=== PATIENT | female | born 1980 | race Caucasian/White ===

== ENCOUNTER 2018-06-11 20:23 | Emergency (ER) | payer OTHER ==
[~2018-06-11] VITALS: Ht 152.4 cm; Wt 70.3 kg
[2018-06-11] MEDS ORDERED: HYDROMORPHONE 1MG/1ML INJ IV STA (20:37)
[2018-06-11] MEDS ORDERED: ONDANSETRON HCL INJ 2 MG/ML VIAL IV STA (20:37)
[2018-06-11] MEDS ORDERED: SODIUM CHLORIDE 0.9% 1000ML 1,000 ML IV ONE (20:45)
[2018-06-11] MEDS ORDERED: NITROFURANTOIN100 MG PO (20:46)
[2018-06-11] MEDS ORDERED: LABETALOL HCL100 MG PO (20:46)
[2018-06-11] MEDS ORDERED: METFORMIN HCL500 MG PO (20:46)
[2018-06-11] MEDS ORDERED: LOSARTAN POTASS50 MG PO (20:46)
[2018-06-11] MEDS ORDERED: FERRALET 90 DU1 EACH PO (20:46)
[2018-06-11] MEDS ORDERED: AMLODIPINE BESYL5 MG PO (20:46)
[2018-06-11] MEDS ORDERED: SERTRALINE HCL50 MG PO (20:46)
[2018-06-11] MEDS ORDERED: PROMETHAZINE12.5 M1 PO (20:46)
[2018-06-11] MEDS ORDERED: FLOMAX0.4 MG PO (20:46)
[2018-06-11] MEDS ORDERED: FENOFIBRATE145 MG PO (20:46)
[2018-06-11] MEDS ORDERED: LIVALO2 MG PO (20:46)
[2018-06-11] MEDS ORDERED: LORATADINE10 MG PO (20:46)
[2018-06-11] MEDS ORDERED: OXYBUTYNIN CHLOR5 MG PO (20:46)
[2018-06-11 20:47] LABS: BASOPHILS # (AUTO) 0.1 (0.0-0.1); BASOPHILS % 0.5 % (0.0-1.0); EOSINOPHILS # (AUTO) 0.7 (0.0-0.4); EOSINOPHILS % 4.5 % (0.0-6.0); HEMOGLOBIN 12.5 g/dL (12.0-16.0); LYMPHOCYTES % 18.9 % (18.0-39.1); MEAN CORPUSCULAR HEMOGLOBIN 25.5 pg (28-32); MEAN CORPUSCULAR HGB CONC 32.1 g/dL (31-35); MEAN CORPUSCULAR VOLUME 79.6 fL (81-99); MONOCYTES # (AUTO) 0.7 (0.2-0.8); MONOCYTES % 4.2 % (4.4-11.3); NEUTROPHILS # (AUTO) 11.4 (2.1-6.9); NEUTROPHILS % 70.8 % (38.7-80.0); PLATELET COUNT 528 x10e3/uL (140-360); RED CELL DISTRIBUTION WIDTH 13.9 % (11.7-14.4)
[2018-06-11 20:50] LABS: BILIRUBIN,URINE 2+ (NEGATIVE); CLARITY,URINE CLOUDY (CLEAR); COLOR,URINE RED (YELLOW); KETONES,URINE TRACE (NEGATIVE); LEUKOCYTE ESTERASE ,URINE 1+ (NEGATIVE); NITRITE,URINE POSITIVE (NEGATIVE); PROTEIN,URINE DIPSTICK 2+ (NEGATIVE); URINE UROBILINOGEN 1 mg/dL (0.2 - 1)
[2018-06-11 20:51] LABS: PREGNANCY TEST, URINE NEGATIVE (NEGATIVE)
[2018-06-11 20:59] LABS: ALBUMIN 4.3 g/dL (3.5-5.0); ALBUMIN/GLOBULIN RATIO 1.1 (0.8-2.0); ANION GAP 18.1 mmol/L (8-16); CALCIUM 10.2 mg/dL (8.4-10.2); CREATININE, SERUM 1.19 mg/dL (0.57-1.11); POTASSIUM 4.1 mmol/L (3.5-5.1)
[2018-06-11 21:00] LABS: BACTERIA,URINE FEW /HPF; RBC,URINE >50 /HPF (0-5)
--- NOTE | 2018-06-11 22:21 | Diagnostic Imaging Report ---
EXAM: CT Abdomen and Pelvis WITHOUT contrast INDICATION: Flank pain. COMPARISON: None. TECHNIQUE: Abdomen and pelvis were scanned utilizing a multidetector helical scanner from the lung base to the pubic symphysis without administration of IV contrast. Absence of intravenous contrast decreases sensitivity for detection of focal lesions and vascular pathology. Coronal and sagittal reformations were obtained. Stone protocol is performed. IV CONTRAST: None. ORAL CONTRAST: Water RADIATION DOSE: Total DLP: 589.4 mGy*cm Estimated effective dose: (DLP x 0.015 x size factor) mSv COMPLICATIONS: None FINDINGS: LINES and TUBES: None. LOWER THORAX: Unremarkable HEPATOBILIARY: No focal hepatic lesions. No biliary ductal dilation. GALLBLADDER: There are stones in the gallbladder. No wall thickening. SPLEEN: No splenomegaly. PANCREAS: No focal masses or ductal dilatation. 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 No cystic or solid mass lesions. There are scattered predominantly inferior pole calcific densities bilaterally ranging between 3 and 4 mm in maximum dimension compatible with nephrolithiasis GI TRACT: No abnormal distention, wall thickening, or evidence of bowel obstruction. Appendix is normal. PELVIC ORGANS/BLADDER: Punctate 2 mm calcification noted in the urinary bladder may be a recently passed stone from the right ureter on series 3, image 152 LYMPH NODES: No lymphadenopathy. VESSELS: Unremarkable. PERITONEUM / RETROPERITONEUM: No free air or fluid. BONES: Unremarkable. SOFT TISSUES: Unremarkable. IMPRESSION: 1. 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 2. There is evidence of right hydroureter without distal obstruction at the time of interpretation. 3. Superimposed pyelonephritis cannot be excluded. Correlation with UA is recommended Signed by: Dr. Capo Stevenson M.D. on 06/11/2018 10:18 PM
[2018-06-11] MEDS ORDERED: CEFTRIAXONE SOD 1 GM VIAL IV ONE (23:00)
[2018-06-11 23:07] VITALS: BP 143/85
== END 2018-06-11 23:29 | disposition home or self-care (01) ==
LOC: ER 20:23
DX: R10.30 Lower abdominal pain, unspecified (principal); R11.0 Nausea; N23 Unspecified renal colic; N30.91 Cystitis, unspecified with hematuria
CPT/HCPCS: 36415; 74176; 80053; 81001; 81025; 85025; 87086; 99284; J0696; J1170; J2405; J7030